=== PATIENT | male | born 1980 | race Caucasian/White ===

== ENCOUNTER 2021-03-05 06:08 | Emergency (ER) | payer OTHER, MEDICAID ==
[~2021-03-05] VITALS: Ht 182.9 cm; Wt 104.5 kg
[~2021-03-05 06:08] MED LIST: CEPH-572 PO
[2021-03-05 06:17] VITALS: BP 128/74
[2021-03-05] MEDS ORDERED: ibuprofen tablet 400 MG TABLET PO ONE (06:30)
== END 2021-03-05 06:50 | disposition home or self-care (01) ==
LOC: ER 06:09
DX: R07.89 Other chest pain (principal); I10 Essential (primary) hypertension; Z72.89 Other problems related to lifestyle; Z79.2 Long term (current) use of antibiotics
CPT/HCPCS: 71046; 93005; 99283

== ENCOUNTER 2023-05-06 10:18 | Emergency (ER) | payer OTHER, MEDICAID ==
[2023-05-06 10:35] VITALS: TEMP 97.3
[2023-05-06 11:01] LABS: BILIRUBIN,URINE NEGATIVE (Neg); CLARITY,URINE SLIGHTLY CLOUDY (Clear); COLOR,URINE YELLOW (Yellow); GLUCOSE, URINE NEGATIVE (Neg); KETONES,URINE 15 mg/dl (Neg); LEUKOCYTE ESTERASE ,URINE NEGATIVE (Neg); NITRITES, URINE NEGATIVE (Neg); OCCULT BLOOD,URINE NEGATIVE (Neg); PROTEIN,URINE NEGATIVE (Neg); UROBILINOGEN,URINE 0.2 E.U/dL (0.2-1.0)
[2023-05-06 11:04] LABS: UA COLLECTION TYPE VOIDED
[2023-05-06 11:12] LABS: BASOPHILS % (AUTO) 0.2 % (0-1); EOSINOPHILS # (AUTO) 0.2 X10'3 (0-0.9); EOSINOPHILS % (AUTO) 1.4 % (0-6); HEMATOCRIT 40.7 % (42.0-52.0); HEMOGLOBIN 13.8 g/dl (14.0-17.9); LYMPHOCYTES # (AUTO) 1.8 X10'3 (1.1-4.8); LYMPHOCYTES % (AUTO) 16.4 % (21-51); MEAN CORPUSCULAR HEMOGLOBIN 29.1 PG (27.0-31.0); MEAN CORPUSCULAR VOLUME 85.8 FL (78-98); MEAN PLATELET VOLUME 8.9 FL (7.4-10.4); MONOCYTES # (AUTO) 0.7 X10'3 (0-0.9); MONOCYTES % (AUTO) 6.2 % (2-12); NEUTROPHILS # (AUTO) 8.2 X10'3 (1.8-7.7); NEUTROPHILS % (AUTO) 75.8 % (42-75); PLATELET COUNT 338 X10'3 (140-440); RED BLOOD COUNT 4.74 X10'6 (4.70-6.10); RED CELL DISTRIBUTION WIDTH 13.1 % (11.5-14.5); WHITE BLOOD COUNT 10.8 X10'3 (4.5-11.0)
[2023-05-06 11:23] LABS: ALBUMIN 3.5 G/DL (3.4-5.0); ANION GAP 8 (8-16); BLOOD UREA NITROGEN 29 MG/DL (7-18); BUN/CREATININE RATIO 32.2 (10.0-20.0); CALCIUM 8.5 MG/DL (8.5-10.1); CHLORIDE 107 MMOL/L (99-107); GLUCOSE 149 MG/DL (70-104); LIPASE 53 U/L (16-77); SODIUM 142 MMOL/L (135-145); TOTAL CARBON DIOXIDE 27.1 MMOL/L (24-32); eGFR > 90 ML/MIN
[2023-05-06 11:28] LABS: SQUAMOUS EPITHELIAL CELL,UR MODERATE /LPF (FEW)
[2023-05-06 11:29] LABS: TRANSITIONAL EPI CELLS,URINE FEW /HPF
[2023-05-06 11:30] LABS: BACTERIA,URINE FEW /HPF (Neg); RBC,URINE 0-2 /HPF (0-2); WBC,URINE 0-4 /HPF (0-4)
[2023-05-06 11:31] LABS: FINE GRANULAR CAST 0-3 /LPF (NEGATIVE)
[2023-05-06 11:52] VITALS: O2SAT 96
[2023-05-06 12:33] VITALS: BP 105/83; PULSE 129
[2023-05-06 12:34] VITALS: RESP 18
[2023-05-06] MEDS ORDERED: iohexol 300mg/ml 100ml inj. ONE (14:42)
[2023-05-06] MEDS ORDERED: ONDA4TAB12 PO (16:15)
[2023-05-06 18:00] LABS: OCCULT BLOOD STOOL POSITIVE (Neg)
== END 2023-05-07 02:42 | disposition home or self-care (01) ==
LOC: ER 10:18
DX: K92.2 Gastrointestinal hemorrhage, unspecified (principal); R10.84 Generalized abdominal pain; I10 Essential (primary) hypertension; Z79.2 Long term (current) use of antibiotics
CPT/HCPCS: 36415; 74177; 80048; 81001; 82272; 83690; 85025; 99285; J3490; Q9967

== ENCOUNTER 2023-10-27 20:56 | Emergency (ER) | payer OTHER, MEDICAID ==
[~2023-10-27] VITALS: Ht 185.4 cm; Wt 101.8 kg
[~2023-10-27 20:56] MED LIST changes: +ONDA-243 PO
[2023-10-27 21:28] LABS: BASOPHILS % (AUTO) 0.2 % (0-1); EOSINOPHILS # (AUTO) 0.3 X10'3 (0-0.9); EOSINOPHILS % (AUTO) 2.4 % (0-6); HEMATOCRIT 38.6 % (42.0-52.0); LYMPHOCYTES # (AUTO) 1.6 X10'3 (1.1-4.8); LYMPHOCYTES % (AUTO) 14.2 % (21-51); MEAN CORPUSCULAR HEMOGLOBIN 27.6 PG (27.0-31.0); MEAN CORPUSCULAR HGB CONC 33.6 g/dL (33.0-36.5); MEAN CORPUSCULAR VOLUME 82.3 FL (78-98); MONOCYTES # (AUTO) 1.3 X10'3 (0-0.9); MONOCYTES % (AUTO) 11.5 % (2-12); NEUTROPHILS % (AUTO) 71.7 % (42-75); PLATELET COUNT 316 X10'3 (140-440); RED CELL DISTRIBUTION WIDTH 13.7 % (11.5-14.5); WHITE BLOOD COUNT 11.2 X10'3 (4.5-11.0)
[2023-10-27 21:41] LABS: ALANINE AMINOTRANSFERASE 49 U/L (12-78); ALBUMIN 3.2 G/DL (3.4-5.0); ALBUMIN/GLOBULIN RATIO 0.9 (1.1-1.5); ALKALINE PHOSPHATASE 171 IU/L (46-116); ANION GAP 6 (8-16); ASPARTATE AMINO TRANSFERASE 30 U/L (10-37); BILIRUBIN,TOTAL 0.6 MG/DL (0.1-1.0); BLOOD UREA NITROGEN 9 MG/DL (7-18); BUN/CREATININE RATIO 9.4 (10.0-20.0); CHLORIDE 105 MMOL/L (99-107); CREATININE 0.96 MG/DL (0.60-1.10); GLUCOSE 85 MG/DL (70-104); POTASSIUM 3.8 MMOL/L (3.5-5.1); SODIUM 140 MMOL/L (135-145); TOTAL CARBON DIOXIDE 29.1 MMOL/L (24-32); TOTAL PROTEIN 6.9 G/DL (6.4-8.2); eCRCL 113 ML/MIN; eGFR 86 ML/MIN
[2023-10-27] MEDS: mag hydrox/Alum hydrox/simeth 30ml oral suspension PO ONE (21:47)
[2023-10-27] MEDS: famotidine/PF 10 mg/ml inj IV ONE (21:48)
[2023-10-27] MEDS: LIDOcaine 2% Viscous 15ml cup MM ONE (21:48)
[2023-10-27 22:03] LABS: PRO BRAIN NATRIURETIC PEPTIDE < 30 PG/ML (0-125); THYROID STIMULATING HORMONE 3.06 ulU/ml (0.34-4.50)
[2023-10-27] MEDS ORDERED: iohexol 350MG/ML 100ml bottle IV ONE (22:59)
[2023-10-28] MEDS: ibuprofen tablet 400 MG TABLET PO ONE (01:00)
[2023-10-28 03:44] VITALS: BP 120/86; PULSE 67; RESP 18; TEMP 99.3; O2SAT 96
== END 2023-10-28 03:45 | disposition home or self-care (01) ==
LOC: ER 20:57
DX: R07.89 Other chest pain (principal); Z20.822 Contact with and (suspected) exposure to COVID-19; R19.00 Intra-abdominal and pelvic swelling, mass and lump, unspecified site; I10 Essential (primary) hypertension; Z79.2 Long term (current) use of antibiotics; Z79.899 Other long term (current) drug therapy
CPT/HCPCS: 36415; 71045; 71275; 80053; 83880; 84443; 84484; 85025; 85379; 87811; 93005; 96374; 99285; J3490; Q9967

== ENCOUNTER 2024-09-02 10:50 | Emergency (ER) | payer OTHER, MEDICAID ==
[~2024-09-02] VITALS: Ht 185.4 cm; Wt 103.6 kg
[2024-09-02 10:52] VITALS: BP 151/104; PULSE 84; RESP 16; TEMP 98.4; O2SAT 97
[2024-09-02] MEDS ORDERED: AMOX-580 PO (11:12)
--- NOTE | 2024-09-02 11:12 | Physician Documentation ---
HPI ~ General Chief Complaint: Tooth Problem Stated Complaint: JAW PAIN Time Seen by MD: 11:05 OK to notify your PCP?: Yes Primary Medical Doctor: None Source: patient Mode of Arrival: POV Exam Limitations: no limitations History of Present Illness HPI Comment 44-year-old male with chief complaint right lower dental pain which started a few days goes gotten progressively worse. He states last night he was up the whole night due to the pain. He reports associated swelling in his jaw as well. He does not have a dentist. He states he just completed chemotherapy for lymphoma. He does have prescription pain medication at home but is hoping he can get a prescription for antibiotics. No sore throat, fever, chills, painful or difficulty swallowing. Medication Reconciliation Allergies: Coded Allergies: peanut (Unverified Allergy, Severe, 09/02/24) Scheduled Cephalexin (Keflex), 1 CAP PO QID Scheduled PRN ONDANSETRON ODT 4mg tablet (Ondansetron Odt), 1 TAB PO Q6H PRN PRN for nausea/vomiting Past Medical History Past Medical History: Hypertension Past Surgical History: no surgical history Alcohol Use: Occasionally Drug Use: none Lives with: Family Lives In: Home Occupation: employed Review of Systems All Other Systems at this time: Reviewed and Negative Physical Exam Vital Signs: Temperature: 98.4, Source: Oral, Heart Rate: 84, Respiratory Rate: 16, BP: 151/104, Pulse Oximetry: 97, Weight: 103.600 Oxygen Flow Rate: 0 Physical Exam GENERAL: Alert, no acute distress. HEENT: NCAT, EOMI, PERRL, right-sided facial swelling, right lower back two molars are avulsed up the gum line, gingiva on the buccal side is edematous and erythematous but no fluctuance. Posterior pharyngeal wall normal. NECK: Supple, trachea midline. Right submandibular lymphadenopathy. CARDIAC: Regular rate and rhythm, no murmurs, rubs, or gallops. RESPIRATORY: Equal breath sounds, clear to auscultation bilaterally, no respiratory distress. MUSCULOSKELETAL: Normal range of motion, nontender, no swelling. Normal gait. NEUROLOGICAL: Awake, alert, and oriented x 3. SKIN: Warm/dry, no pallor, no rash. PSYCH: Alert and appropriate. Affect congruent with mood. Speech is clear. Good eye contact. Progress Results/Orders Results/Orders Vital Signs 09/02/24 10:52 Temp 98.4 Pulse 84 Resp 16 B/P (MAP) 151/104 Pulse Ox 97 O2 Flow Rate 0 Medical Decision Making Differential Dx:Considerations: Include: Alveolar fracture, Alveolar osteitis, ANUG, Facial Cellulitis, Periapical abscess, Peridontal abscess, Post-extraction bleeding, Pulpitis, Tooth avulsion, Tooth eruption, Tooth Fracture, Trigeminal neuralgia, Tooth subluxation, Other Departure Time of Disposition: 11:11 Disposition: 01 HOME / SELF CARE / HOMELESS Impression: Primary Impression: Dental abscess Condition: Stable Discharge Instructions: Dental Abscess Additional Instructions: ANTIBIOTICS SENT TO PHARMACY [facility] F/U WITH DENTIST Referrals: NO PRIMARY CARE PROVIDER (PCP) Prescriptions Amox Tr/Potassium Clavulanate 875/125 MG (Augmentin 875/125 MG) 875 Mg-125 Mg Tablet 1 TAB PO Q12H for 10 Days, #20 TAB Prov: WILLIE WALLS 09/02/24 Education Educated: Patient Educated regarding: diagnosis, treatment, need for follow up Signature Scribe Signature: X Attestation: WILLIE AGEE Sep 02, 2024 11:12
== END 2024-09-02 11:25 | disposition home or self-care (01) ==
LOC: ER 10:50
DX: K04.7 Periapical abscess without sinus (principal); I10 Essential (primary) hypertension; Z72.89 Other problems related to lifestyle
CPT/HCPCS: 99283